=== PATIENT | female | born 1975 | race Caucasian/White ===

== ENCOUNTER 2022-05-17 13:41 | Emergency (ER) | payer MEDICARE ==
[~2022-05-17] VITALS: Ht 162.6 cm; Wt 147.7 kg
[~2022-05-17 13:41] MED LIST: LISI-892 PO; METF-1211 PO
[2022-05-17] MEDS ORDERED: SITA50 PO (13:51)
[2022-05-17 13:52] VITALS: BP 129/93
[2022-05-17] MEDS ORDERED: ESCI20TA37 PO (14:42)
[2022-05-17] MEDS ORDERED: IBUPROFEN 600 MG TABLET PO ONE (14:45)
[2022-05-17] MEDS ORDERED: ACETAMINOPHEN 500 MG TABLET PO ONE (14:45)
== END 2022-05-17 16:47 | disposition home or self-care (01) ==
LOC: EMS 13:41
DX: S89.91XA Unspecified injury of right lower leg, initial encounter (principal); M79.641 Pain in right hand; I10 Essential (primary) hypertension; E11.9 Type 2 diabetes mellitus without complications; Z88.0 Allergy status to penicillin; Z79.899 Other long term (current) drug therapy; Y04.0XXA Assault by unarmed brawl or fight, initial encounter; Y93.89 Activity, other specified; Y92.89 Other specified places as the place of occurrence of the external cause; Y99.8 Other external cause status
CPT/HCPCS: 99284; 73130-TC; 73562-TC; Z7502; Z7610